=== PATIENT | female | born 1960 | race Caucasian/White ===

== ENCOUNTER 2021-10-16 10:45 | Emergency (ER) | payer MEDICARE, SELFPAY ==
[2021-10-16 10:46] VITALS: BP 211/103; PULSE 104; RESP 22; TEMP 37.1; O2SAT 98; BMI 41.3
[2021-10-16 11:32] VITALS: BP 211/103; PULSE 104; RESP 22; TEMP 37.1; O2SAT 98; BMI 18.8
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
[2021-10-16 12:21] VITALS: BP 189/72; PULSE 95; RESP 22; TEMP 37.1
== END 2021-10-16 12:28 | disposition home or self-care (01) ==
PROVIDERS: Emergency Provider Nurse Practitioner Family; PCP Family Medicine
DX: T23.202A Burn of second degree of left hand, unspecified site, initial encounter (principal); T31.0 Burns involving less than 10% of body surface; X10.0XXA Contact with hot drinks, initial encounter
CPT/HCPCS: 99213; G0463